=== PATIENT | female | born 1945 | race Caucasian/White ===

== ENCOUNTER 2016-11-14 14:05 | Emergency (ER) | payer MEDICARE, BC ==
--- NOTE | 2016-12-02 11:52 | ER ---
ADMIT: 11/14/2016 RM/LOC: ER [facility] MR#: [id number] [address] [id number] AMY ADKINSNEWTON Quiroz [address] [place] [address] Emergency Room Report SEX: F AGE: 71 : 1945 DATE: 11/14/2016 ADDENDUM: A 71-year-old white female coming in with radiculopathy like symptoms going down her left leg, also over her left hip. Did not see anything there. Left hip, again nothing there. Her leg lift is questionable at this time, but she continues to have sciatica like symptoms. There is no rash or anything that would suggest otherwise. X-rays, degenerative joint disease but nothing more. At this time, I am going to put her on prednisone 20 mg b.i.d. x5 days. She may take it b.i.d. or take 2 pills all at one time. We gave her a shot of morphine here just for pain control, 5 mg IM. Then, she has hydrocodone at home that she can take. At this time, she should follow up with Dr. Haley later next week. CONDITION ON DISCHARGE: Fair. Wilbur Schaeffer MD/ [place]tega JOB #: [id number] CC: Wilbur Schaeffer MD, Attending Physician
== END 2016-11-14 17:00 | disposition home or self-care (01) ==
LOC: ER 14:05
DX: M54.42 Lumbago with sciatica, left side (principal); I10 Essential (primary) hypertension; Z87.891 Personal history of nicotine dependence; Z85.3 Personal history of malignant neoplasm of breast; Z86.73 Personal history of transient ischemic attack (TIA), and cerebral infarction without residual deficits; Z79.899 Other long term (current) drug therapy

== ENCOUNTER → 2016-11-18 | Outpatient (CLI) | payer MEDICARE, BC | END | disposition home or self-care (01) | LOC: RAD.S 13:01 | DX: M54.5 Low back pain (principal); M48.56XA Collapsed vertebra, not elsewhere classified, lumbar region, initial encounter for fracture; M80.88XA Other osteoporosis with current pathological fracture, vertebra(e), initial encounter for fracture; M51.26 Other intervertebral disc displacement, lumbar region; M85.89 Other specified disorders of bone density and structure, multiple sites; Z78.0 Asymptomatic menopausal state ==